=== PATIENT | male | born 1955 | race Caucasian/White ===

== ENCOUNTER 2021-04-24 14:24 | Emergency (ER) | payer MEDICAID, OTHER, SELFPAY ==
[~2021-04-24] VITALS: Ht 177.8 cm; Wt 95.6 kg
[2021-04-24 14:25] VITALS: BP 145/83
[2021-04-24] MEDS ORDERED: QUET1TAB17 (14:34)
[2021-04-24] MEDS ORDERED: QUET50TA4 (14:34)
[2021-04-24] MEDS ORDERED: LISI20TA33 (14:34)
== END 2021-04-24 17:38 | disposition left against medical advice (07) ==
LOC: M ED 14:24
DX: Z53.29 Procedure and treatment not carried out because of patient's decision for other reasons (principal)

== ENCOUNTER 2021-05-27 19:32 | Emergency (ER) | payer MEDICAID ==
[~2021-05-27] VITALS: Ht 177.8 cm; Wt 81.8 kg
[~2021-05-27 19:32] MED LIST: LISI20TA33; QUET1TAB17; QUET50TA4
[2021-05-27 19:33] VITALS: BP 161/95
--- NOTE | 2021-05-28 07:34 | ECGEPIP ---
[facility] - ED Test Date: 2021-05-27 Pat Name: BERNY PENA Department: Room: - Gender: Male [employer]: Sarah : [id number] Requested By: SANJUANITA Seymour Order Number: [id number] Reading MD: Zoila Xiong Measurements Intervals [place] Rate: 67 P: 37 TX: 164 QRS: -27 QRSD: 116 T: 10 QT: 404 QTc: 426 Interpretive Statements Normal sinus rhythm No prior Electronically Signed on 05-28-2021 7:34:22 EST by Zoila Xiong
== END 2021-05-28 00:17 | disposition left against medical advice (07) ==
LOC: M ED 19:32
DX: Z53.29 Procedure and treatment not carried out because of patient's decision for other reasons (principal)